=== PATIENT | male | born 1955 | race Caucasian/White ===

== ENCOUNTER → 2017-10-12 | Outpatient (REF) ==
[~2017-10-12] MED LIST: COUMADIN 5MG5 MG/TAB PO; DILAUDID 2MG TAB2 MG PO; OXYCONTIN20 MG PO
[2017-10-12 15:20] LABS: PSA-TOTAL 1.99 ng/mL (0-4); THYROID STIMULATING HORMONE 1.12 uIU/mL (0.465-4.680)
== END ==
LOC: ZLAB.WCH 14:24
PROVIDERS: Family Medicine
DX: Z01.89 Encounter for other specified special examinations (principal)
CPT/HCPCS: G0103

== ENCOUNTER → 2019-03-02 | Outpatient (REF) | LOC: ZLAB.WCH 14:33 | DX: Z01.89 Encounter for other specified special examinations (principal) | CPT/HCPCS: G0103 ==